=== PATIENT | female | born 1970 | race Native Hawaiian/Other Pacific Islander ===

== ENCOUNTER 2016-08-29 10:06 | Emergency (ER) | payer OTHER ==
[~2016-08-29] VITALS: Ht 162.6 cm; Wt 181.4 kg
[2016-08-29 11:05] LABS: PLATELET COUNT 155 K/uL (152-353)
[2016-08-29 11:23] LABS: POTASSIUM 4.4 mmol/L (3.6-5.2); SODIUM 132 mmol/L (136-145)
[2016-08-29 12:37] VITALS: BP 141/79; TEMP 98.3
== END 2016-08-29 12:51 | disposition home or self-care (01) ==
LOC: ED 10:06
DX: I50.9 Heart failure, unspecified (principal); J02.0 Streptococcal pharyngitis
CPT/HCPCS: 36415; 36600; 80053; 81000; 82805; 83880; 85027; 87804; 87880; 93005; 99283

== ENCOUNTER 2016-10-16 15:06 | Outpatient (CLI) | payer OTHER ==
[2016-10-16 15:36] LABS: POTASSIUM 4.3 mmol/L (3.6-5.2); SODIUM 135 mmol/L (136-145)
[2016-10-16 15:50] LABS: PLATELET COUNT 185 K/uL (152-353)
== END 2016-10-16 19:20 | disposition home or self-care (01) ==
LOC: LAB 15:06
PROVIDERS: Nurse Practitioner Family
DX: Z00.00 Encounter for general adult medical examination without abnormal findings (principal); E11.9 Type 2 diabetes mellitus without complications; M79.605 Pain in left leg; I10 Essential (primary) hypertension; M79.7 Fibromyalgia; R53.83 Other fatigue; M25.552 Pain in left hip; E66.8 Other obesity; E55.9 Vitamin D deficiency, unspecified
CPT/HCPCS: 80053; 80061; 82306; 82607; 83036; 84436; 84443; 85027

== ENCOUNTER 2017-03-06 12:01 | Outpatient (CLI) | payer OTHER ==
[2017-03-06 12:18] LABS: PLATELET COUNT 171 K/uL (152-353)
[2017-03-06 12:33] LABS: POTASSIUM 4.3 mmol/L (3.6-5.2); SODIUM 138 mmol/L (136-145)
== END 2017-03-06 19:07 | disposition home or self-care (01) ==
LOC: LAB 12:01
PROVIDERS: Nurse Practitioner Family
DX: E11.9 Type 2 diabetes mellitus without complications (principal); I10 Essential (primary) hypertension; E66.01 Morbid (severe) obesity due to excess calories; R53.83 Other fatigue; I50.9 Heart failure, unspecified
CPT/HCPCS: 80053; 80061; 83036; 84436; 84443; 85027

== ENCOUNTER 2017-06-09 15:49 | Outpatient (CLI) | payer OTHER ==
[2017-06-09 16:17] LABS: PLATELET COUNT 174 K/uL (152-353)
[2017-06-09 16:37] LABS: POTASSIUM 4.1 mmol/L (3.6-5.2)
== END 2017-06-09 19:08 | disposition home or self-care (01) ==
LOC: LAB 15:49
PROVIDERS: Nurse Practitioner Family
DX: E11.9 Type 2 diabetes mellitus without complications (principal); I10 Essential (primary) hypertension; E66.01 Morbid (severe) obesity due to excess calories; R53.83 Other fatigue; M79.7 Fibromyalgia; R51 Headache; N32.81 Overactive bladder; I50.9 Heart failure, unspecified
CPT/HCPCS: 80053; 80061; 83036; 84436; 84443; 85027

== ENCOUNTER 2017-07-13 09:58 | Outpatient (CLI) | payer OTHER | END 2017-07-13 20:06 | disposition home or self-care (01) | LOC: MAMMO 09:58 | DX: Z12.31 Encounter for screening mammogram for malignant neoplasm of breast (principal) ==

== ENCOUNTER 2019-11-24 18:46 | Emergency (ER) | payer OTHER ==
[~2019-11-24] VITALS: Ht 154.9 cm; Wt 167.8 kg
[2019-11-24 19:21] LABS: PLATELET COUNT 182 K/uL (152-353)
[2019-11-24 19:30] LABS: POTASSIUM 3.9 mmol/L (3.6-5.2)
[2019-11-25 01:30] VITALS: TEMP 98.5
[2019-11-25 02:30] VITALS: BP 102/76
== END 2019-11-25 03:02 | disposition short-term general hospital (02) ==
LOC: ED 18:46
DX: J18.8 Other pneumonia, unspecified organism (principal); E66.01 Morbid (severe) obesity due to excess calories; Z79.899 Other long term (current) drug therapy
CPT/HCPCS: 36415; 80053; 82550; 83605; 83880; 84484; 85027; 85610; 85730; 87040; 87077; 87186; 87205; 93005; 96365; 96366; 96375; 99284; J0743; J2405; J3490